=== PATIENT | female | born 1955 | race Two or more races ===

== ENCOUNTER 2025-06-20 18:12 | Emergency (ER) | payer OTHER ==
[~2025-06-20] VITALS: Ht 154.9 cm; Wt 57.8 kg
--- NOTE | 2025-06-20 19:27 | DVH ---
CLINICAL INDICATION: Pain TECHNIQUE: 3 radiographic views of the facial bones were obtained. Comparison: None FINDINGS/IMPRESSION: There is no evidence of acute fracture . The visualized paranasal sinuses and mastoids are clear. If symptoms persist, consider CT for further evaluation.
--- NOTE | 2025-06-20 19:33 | ED.PDOC ---
Justin. trauma (HPI) HPI Comments 70-year-old female who came to ER for fall injury. Patient states that she was climbing the stairs of her motor home earlier, when she slipped on a step which resulted in hitting her face at the door. Patient states it subsequent to the event, she had a significant right-sided nosebleed. Bleeding was controlled at time of evaluation. Some mild lateral deformity noted to the nose which may be chronic. Patient denies any change in vision or LOC. Patient was hypertensive and tachycardic at arrival. Patient may be alcohol intoxicated as well. Chief Complaint: Fall Injury Time Seen by MD: 19:32 Reviewed notes: Nurses Notes Allergies: Coded Allergies: NO KNOWN ALLERGIES (Unverified , 06/20/25) Information Source: Patient Mode of Arrival: Ambulatory Severity: Moderate Timing: Hours Duration: Since onset Prehospital treatment: None Location: Face, Nose Location of laceration: None Mechanism: Blunt trauma Associated signs and symtoms: Headache Past Medical History PAST MEDICAL HISTORY: Denies Surgical History: Denies all surgeries TECHNICAL MGR History: Denies all TECHNICAL MGR Hx Family History Family History: Reviewed,noncontributory to illness Social History Smoker: Non-Smoker Alcohol: Occasionally Drugs: Denies Drug Use Lives In: Home Constitutional: denies: chills, diaphoresis, fatigue, fever, malaise, sweats, weakness, others EENTM: reports: nose bleeding (Right), nose pain; denies: blurred vision, double vision, ear bleeding, ear discharge, ear drainage, ear pain, ear ringing, eye pain, eye redness, hearing loss, mouth pain, mouth swelling, nasal discharge, nose congestion, photophobia, tearing, throat pain, throat swelling, voice changes, others Respiratory: denies: cough, hemoptysis, orthopnea, SOB at rest, shortness of breath, SOB with excertion, stridor, wheezing, others Cardiovascular: denies: chest pain, dizzy spells, diaphoresis, Dyspnea on exertion, edema, irregular heart beat, left arm pain, lightheadedness, palpitations, PND, syncope, others Gastrointestinal: denies: abdomen distended, abdominal pain, blood streaked bowels, constipated, diarrhea, dysphagia, difficulty swallowing, hematemesis, melena, nausea, poor appetite, poor fluid intake, rectal bleeding, rectal pain, vomiting, others Genitourinary: denies: abnormal vagina bleeding, burning, dyspareunia, dysuria, flank pain, frequency, hematuria, incontinence, pain, , vagina discharge, urgency, others Neurological: denies: dizziness, fainting, headache, left sided numbness, left sided weakness, numbness, paresthesia, pre-existing deficit, right sided numbness, right sided weakness, seizure, speech problems, tingling, tremors, weakness, others Musculoskeletal: denies: back pain, gout, joint pain, joint swelling, muscle pain, muscle stiffness, neck pain, others Integumetry: denies: bruises, change in color, change in hair/nails, dryness, laceration, lesions, lumps, rash, wounds, others Allergic/Immunocompromised: denies: Difficulty Healing, Frequent Infections, Hives, Itching, others Hematologic/Lymphatic: denies: anemia, blood clots, easy bleeding, easy bruising, swollen glands, others Endocrine: denies: excessive hunger, excessive sweating, excessive thirst, excessive urination, flushing, intolerance to cold, intolerance to heat, unexplained weight gain, unexplained weight loss, others Psychiatric: denies: anxiety, bipolar disorder, depression, hopeless, panic disorder, schizophrenia, sleepless, suicidal, others Physical Exam General Appearance: Moderate Distress ([id number] distress due to facial pain concerns.), Normal HEENT: Pharynx Normal, TMs Normal, Other (Right-sided crusted blood noted in the Sauer. Mild left-sided deformity appreciated on the nasal bone which may be chronic. No septal hematoma noted. Patient denies any sensitivity to zygomatic arches or orbital. No dental trauma.) Neck: Full Range of Motion, Non-Tender, Normal, Normal Inspection Respiratory: Chest Non-Tender, Lungs Clear, No Accessory Muscle Use, No Respiratory Distress, Normal Breath Sounds Cardiovascular: No Edema, No JVD, No Murmur, No Gallop, Normal Peripheral Pulses, Regular Rate/Rhythm Breast Exam: Deferred Gastrointestinal: No Organomegaly, Non Tender, No Pulsatile Mass, Normal Bowel Sounds, Soft Genitalia: Deferred Pelvic: Deferred Rectal: Deferred Extremities: No calf tenderness, Normal inspection, Normal range of motion, Non-tender, No pedal edema Musculoskeletal : Apperance: Normal Neurologic: Alert Cerebellar Function: NOT DONE Reflexes: NOT DONE Skin: Dry, Normal Color, Warm Lymphatic: No Adenopathy Was a procedure done? Was a procedure done?: No Differential Diagnosis Multiple Trauma: Closed Head Injury, Fractures X-Ray, Labs, Meds, VS Vital Signs Date Time Temp Pulse Resp B/P (MAP) Pulse Ox O2 Delivery O2 Flow Rate FiO2 06/20/25 18:15 98.3 113 15 153/90 97 98.3 X-Ray, Labs, Meds, VS Comment All studies performed the ED were evaluated by me personally. Imaging studies of the facial bones was unremarkable for any acute fractures including unremarkable nasal bone fracture. Advised patient she suffered a facial contusion due to her event. Advised Tylenol and or Motrin as needed for pain relief. Advised patient follow up with the primary care provider in the next few days for re-evaluation and assessment for any septal hematoma formation. Time of 1ST Reevaluation: 19:53 Reevaluation 1ST: Improved Consultation: PCP Patient Education/Counseling: Diagnosis, Treatment Family Education/Counseling: Diagnosis, Treatment, No Family Present Departure 1 Departure Time of Disposition: 19:53 Impression: Primary Impression: Facial trauma Disposition: 01 HOME / SELF CARE / HOMELESS Condition: Stable Additional Instructions: Advised patient utilize Tylenol and or Motrin as needed for pain relief. Ice therapy as tolerated. Patient should not disturb her nose or try to remove any the blood clotting in the right Sauer as it will resolve naturally. Patient should follow up with the primary care provider in the next few days for re- evaluation and rule out of any septal hematoma formation. e-Prescriptions Acetaminophen (Acetaminophen) 500 Mg Tab 500 MG PO Q4HP PRN, #30 TAB Prov: ROBERTA EASLEY PAC 06/20/25 Ibuprofen Micronized (Ibuprofen) 800 Mg Tab 800 MG PO Q8HP PRN, #20 TAB Prov: ROBERTA EASLEY PAC 06/20/25 Discharged With: Self, Friend Critical Care Note Critical Care Time?: No Stability Stability form required: No Heart Score Heart Score: Heart Score Response (Comments) Value History N/A 0 EKG N/A 0 Age N/A 0 Risk Factors N/A 0 Troponin N/A 0 Total 0 I personally scribed for ROBERTA EASLEY ([email or web address]) on 06/20/25 at 19:33. Electronically submitted by Wenceslao Goss ([facility]). ROBERTA EASLEY PAC Jun 20, 2025 19:33
[2025-06-20] MEDS ORDERED: IBUP-1455 PO (19:55)
[2025-06-20] MEDS ORDERED: ACET500T58 PO (19:55)
[2025-06-20 20:17] VITALS: BP 151/75; PULSE 100; RESP 19; TEMP 97.9; O2SAT 97
[2025-06-20] MEDS: HYDROcodone-ACET 5/325MG TAB PO ONE (20:17)
[2025-06-20] MEDS: KETOROLAC TROMETH 60MG/2ML VIAL IM ONE (20:18)
== END 2025-06-20 20:49 | disposition home or self-care (01) ==
LOC: ER 18:15
DX: S09.93XA Unspecified injury of face, initial encounter (principal); R00.0 Tachycardia, unspecified; R04.0 Epistaxis; I10 Essential (primary) hypertension; W22.09XA Striking against other stationary object, initial encounter; Y93.89 Activity, other specified; Y92.89 Other specified places as the place of occurrence of the external cause; Y99.8 Other external cause status
CPT/HCPCS: 70140; 96372; 99283; J1885